=== PATIENT | male | born 1935 | race Caucasian/White ===

== ENCOUNTER 2020-04-19 03:19 | Emergency (ER) | payer OTHER ==
[2020-04-19 04:11] LABS: Absolute Lymphocytes (CBC) 0.7 K/uL (0.7-4.9); Basophils % 1.6 % (0-1.3); Hematocrit 38.4 % (39.6-49.0); MPV 9.2 fL (7.6-11.3); RBC Red Blood Cell Count 4.13 M/uL (4.33-5.43)
[2020-04-19] MEDS ORDERED: DIPHENOX/ATROP SULF 1 TAB PO ONE (04:25)
[2020-04-19] MEDS ORDERED: NA CHLORIDE 0.9% 500 ML ONE (04:25)
[2020-04-19 04:28] LABS: Albumin 3.8 g/dL (3.4-5.0); Bilirubin Direct 0.2 mg/dL (0-0.2); Bilirubin Total 0.5 mg/dL (0.2-1.0); Potassium 3.8 mmol/L (3.5-5.1); Protein, Total 7.7 g/dL (6.4-8.2)
[2020-04-19] MEDS ORDERED: MAGNE/ALUM HYDROXD 30 ML UCUP ONE (04:33)
[2020-04-19] MEDS ORDERED: LIDOCAINE VISCOUS 2% SOLN 15 ML UDC ONE (04:33)
[2020-04-19 05:28] LABS: Blood Morphology Comment NOT SEEN (NOT SEEN); Platelet Estimate ADEQ
--- NOTE | 2020-04-19 05:42 | ER ---
Nurse's Notes [facility] Name: Nehemias Lanier Age: 84 yrs Sex: Male : 1935 Arrival Date: 04/19/2020 Time: 03:22 Bed 20 Private MD: Diagnosis: Other viral enteritis Presentation: 04/19 03:34 Chief complaint: Patient states: abdominal pain and diarrhea together with nausea that wh started yesterday morning. Pt describes burning pain on abdomen. Pt denies fever or vomiting. Coronavirus screen: Proceed with normal triage. Patient denies a cough. Patient denies shortness of breath or difficulty breathing. Patient denies measured and/or subjective temperature greater than 100.4F prior to today's visit. Patient denies travel on a cruise ship or to a country the [facility] currently lists as an affected area. Patient denies contact with known and/or suspected case of COVID-19. Ebola Screen: Patient negative for fever greater than or equal to 101.5 degrees Fahrenheit, and additional compatible Ebola Virus Disease symptoms Patient denies exposure to infectious person. Initial Sepsis Screen: Does the patient meet any 2 criteria? No. Patient's initial sepsis screen is negative. Does the patient have a suspected source of infection? Yes: Acute abdominal pain. Risk Assessment: Do you want to hurt yourself or someone else? Patient reports no desire to harm self or others. Onset of symptoms was April 18, 2020. 03:34 Method Of Arrival: Ambulatory 03:34 Acuity: VIDHYA 3 Historical: - Allergies: 03:40 No Known Allergies; - Home Meds: 03:40 Vitamin D Oral 5000 unit daily [Active]; clopidogrel 75 mg oral tab 1 tab once daily [Active]; valsartan-hydrochlorothiazide 160-12.5 mg oral tab 1 tab once daily [Active]; simvastatin 40 mg oral tab 1 tab nightly [Active]; aspirin 81 mg Oral chew 1 tab nightly [Active]; - PMHx: 03:40 Hypertension; High Cholesterol; TIA; Anxiety; - PSHx: 03:40 Appendectomy; - Immunization history:: Adult Immunizations up to date. - Social history:: Smoking status: Patient/guardian denies using. Screenin:42 Abuse screen: Denies threats or abuse. Denies injuries from another. Nutritional screening: No deficits noted. Tuberculosis screening: No symptoms or risk factors identified. Fall Risk None identified. Assessment: 03:40 General: Appears in no apparent distress. Behavior is calm, cooperative, appropriate wh for age. Pain: Complains of pain in abdomen Pain does not radiate. Pain currently is 8 out of 10 on a pain scale. Quality of pain is described as burning, Pain began 1 day ago. Is intermittent. Neuro: Level of Consciousness is awake, alert, obeys commands, Oriented to person, place, time, situation, Appropriate for age. Cardiovascular: Heart tones S1 S2. Respiratory: Airway is patent Respiratory effort is even, unlabored, Respiratory pattern is regular, symmetrical, Breath sounds are clear bilaterally. GI: Abdomen is flat, non-distended, Bowel sounds present X 4 quads. Abd is soft and non tender X 4 quads. Reports lower abdominal pain, upper abdominal pain, diarrhea, nausea. : No signs and/or symptoms were reported regarding the genitourinary system. EENT: No signs and/or symptoms were reported regarding the EENT system. Derm: Skin is intact, is healthy with good turgor, Skin is pink, warm \T\ dry. normal. Musculoskeletal: Circulation, motion, and sensation intact. 04:45 Reassessment: Patient appears in no apparent distress at this time. No changes from previously documented assessment. Patient and/or family updated on plan of care and expected duration. Pain level reassessed. Patient is alert, oriented x 3, equal unlabored respirations, skin warm/dry/pink. 05:50 Reassessment: Patient appears in no apparent distress at this time. No changes from previously documented assessment. Patient and/or family updated on plan of care and expected duration. Pain level reassessed. Patient is alert, oriented x 3, equal unlabored respirations, skin warm/dry/pink. Patient states feeling better. Patient states symptoms have improved. Vital Signs: 03:34 BP 149 / 73; Pulse 52; Resp 18; Temp 98.5; Pulse Ox 96% ; Weight 73.94 kg; Height 5 ft. 9 in. (175.26 cm); Pain 8/10; 04:30 BP 140 / 72; Pulse 75; Resp 18; Pulse Ox 98% on R/A; 05:30 BP 141 / 72; Pulse 65; Resp 18; Pulse Ox 98% on R/A; 03:34 Body Mass Index 24.07 (73.94 kg, 175.26 cm) ED Course: 03:22 Patient arrived in ED. cl3 03:31 Gabrielle Saul is Primary Nurse. 03:37 Triage completed. 03:41 Woody Figueredo MD is Attending Physician. tw4 03:42 Arm band placed on right wrist. 03:42 Patient has correct armband on for positive identification. Bed in low position. Call light in reach. Side rails up X 1. Pulse ox on. NIBP on. 03:50 Inserted saline lock: 20 gauge in right antecubital area, using aseptic technique. Blood collected. 05:52 No provider procedures requiring assistance completed. IV discontinued, intact, bleeding controlled, No redness/swelling at site. Administered Medications: 04:23 Drug: NS 0.9% 500 ml Route: IV; Rate: bolus; Site: right antecubital; 05:51 Follow up: Response: No adverse reaction; IV Status: Completed infusion 04:24 Drug: LoMOTIL 2 tabs Route: PO; 05:52 Follow up: Response: No adverse reaction 04:29 Drug: GI Cocktail without - (Maalox Suspension 30 ml, Lidocaine Liquid 2 % 15 wh ml) Route: PO; 05:51 Follow up: Response: No adverse reaction; Pain is decreased Outcome: 05:41 Discharge ordered by . tw4 05:52 Discharged to home ambulatory, with family. 05:52 Condition: stable 05:52 Discharge instructions given to patient, family, Instructed on discharge instructions, follow up and referral plans. medication usage, POC Demonstrated understanding of instructions, follow-up care, medications, POC Prescriptions given X 3. 05:52 Patient left the ED. Signatures: Gabrielle Saul Woody Figueredo MD MD tw4 Solitario Myers cl3
--- NOTE | 2020-04-19 05:42 | EDPHYS ---
Physician Documentation [facility] Name: Nehemias Lanier Age: 84 yrs Sex: Male : 1935 Arrival Date: 04/19/2020 Time: 03:22 Bed 20 Private MD: ED Physician Woody Figueredo HPI: 04/19 04:42 This 84 yrs old Male presents to ER via Ambulatory with complaints of tw4 Abdominal Pain, Diarrhea. 04:42 The patient presents to the emergency department with diarrhea, abdominal pain. Onset: tw4 The symptoms/episode began/occurred yesterday. Possible causes: bad food exposure, salad. The symptoms are aggravated by nothing. The symptoms are alleviated by nothing. Associated signs and symptoms: The patient has no apparent associated signs or symptoms. Severity of symptoms: At their worst the symptoms were moderate in the emergency department the symptoms. The patient has not experienced similar symptoms in the past. Historical: - Allergies: 03:40 No Known Allergies; - Home Meds: 03:40 Vitamin D Oral 5000 unit daily [Active]; clopidogrel 75 mg oral tab 1 tab once daily [Active]; valsartan-hydrochlorothiazide 160-12.5 mg oral tab 1 tab once daily [Active]; simvastatin 40 mg oral tab 1 tab nightly [Active]; aspirin 81 mg Oral chew 1 tab nightly [Active]; - PMHx: 03:40 Hypertension; High Cholesterol; TIA; Anxiety; wh - PSHx: 03:40 Appendectomy; - Immunization history:: Adult Immunizations up to date. - Social history:: Smoking status: Patient/guardian denies using. ROS: 04:42 Constitutional: Negative for fever, chills, and weight loss, Eyes: Negative for injury, tw4 pain, redness, and discharge, Cardiovascular: Negative for chest pain, palpitations, and edema, Respiratory: Negative for shortness of breath, cough, wheezing, and pleuritic chest pain, Back: Negative for injury and pain, MS/Extremity: Negative for injury and deformity, Skin: Negative for injury, rash, and discoloration. 04:42 Abdomen/GI: Positive for nausea, diarrhea, abdominal cramps, abdominal distension, Negative for abdominal pain, nausea and vomiting, nausea, vomiting, and diarrhea, anorexia, dysphagia, hematemesis, black/tarry stool, rectal pain, rectal bleeding, bowel incontinence. Exam: 04:42 Constitutional: This is a well developed, well nourished patient who is awake, alert, tw4 and in no acute distress. Head/Face: Normocephalic, atraumatic. Chest/axilla: Normal chest wall appearance and motion. Nontender with no deformity. No lesions are appreciated. Cardiovascular: Regular rate and rhythm with a normal S1 and S2. No gallops, murmurs, or rubs. Normal PMI, no JVD. No pulse deficits. Respiratory: Lungs have equal breath sounds bilaterally, clear to auscultation and percussion. No rales, rhonchi or wheezes noted. No increased work of breathing, no retractions or nasal flaring. Back: No spinal tenderness. No costovertebral tenderness. Full range of motion. MS/ Extremity: Pulses equal, no cyanosis. Neurovascular intact. Full, normal range of motion. Neuro: Awake and alert, GCS 15, oriented to person, place, time, and situation. Cranial nerves II-XII grossly intact. Motor strength 5/5 in all extremities. Sensory grossly intact. Cerebellar exam normal. Normal gait. 04:42 Abdomen/GI: Inspection: distension, that is mild, Bowel sounds: diminished, Palpation: mild abdominal tenderness, in all quadrants. Vital Signs: 03:34 BP 149 / 73; Pulse 52; Resp 18; Temp 98.5; Pulse Ox 96% ; Weight 73.94 kg; Height 5 ft. wh 9 in. (175.26 cm); Pain 8/10; 04:30 BP 140 / 72; Pulse 75; Resp 18; Pulse Ox 98% on R/A; wh 05:30 BP 141 / 72; Pulse 65; Resp 18; Pulse Ox 98% on R/A; wh 03:34 Body Mass Index 24.07 (73.94 kg, 175.26 cm) MDM: 03:42 Patient medically screened. tw4 06:56 Differential diagnosis: Nonspecific abd pain, gastritis. Data reviewed: vital signs, tw4 nurses notes. Data interpreted: Pulse oximetry: Interpretation: normal. Counseling: I had a detailed discussion with the patient and/or guardian regarding: the historical points, exam findings, and any diagnostic results supporting the discharge/admit diagnosis. Medication response: lomotil. Response to treatment: the patient's symptoms have markedly improved after treatment, and as a result, I will discharge patient. Special discussion: I discussed with the patient/guardian in detail that at this point there is no indication for admission to the hospital. It is understood, however, that if the symptoms persist or worsen the patient needs to return immediately for re-evaluation. 04/19 03:43 Order name: Basic Metabolic Panel; Complete Time: 05:23 tw4 04/19 05:23 Interpretation: Normal except: GLUC 124; CRE 1.40; GFR 49; BUN 24. tw4 04/19 03:43 Order name: CBC with Diff tw4 04/19 05:24 Interpretation: Normal except: BASO% 1.6; LYM% 9.0; KELLY% 74.0; MN% 15.3; RBC 4.13; HGB tw4 13.1; HCT 38.4. 04/19 03:43 Order name: Hepatic Function; Complete Time: 05:23 tw4 04/19 05:23 Interpretation: Normal except: GLOB 3.9; A/G 1.0; AST 40. tw4 04/19 03:43 Order name: Lipase; Complete Time: 05:23 tw4 04/19 05:23 Interpretation: Normal except: LIP 653. tw4 04/19 04:15 Order name: Manual Differential EDMS 04/19 03:43 Order name: IV Saline Lock; Complete Time: 03:58 tw4 04/19 03:43 Order name: Labs collected and sent; Complete Time: 03:58 tw4 Administered Medications: 04:23 Drug: NS 0.9% 500 ml Route: IV; Rate: bolus; Site: right antecubital; 05:51 Follow up: Response: No adverse reaction; IV Status: Completed infusion wh 04:24 Drug: LoMOTIL 2 tabs Route: PO; 05:52 Follow up: Response: No adverse reaction wh 04:29 Drug: GI Cocktail without - (Maalox Suspension 30 ml, Lidocaine Liquid 2 % 15 wh ml) Route: PO; 05:51 Follow up: Response: No adverse reaction; Pain is decreased wh Disposition: 04/19/20 05:41 Discharged to Home. Impression: Other viral enteritis. - Condition is Stable. - Discharge Instructions: Food Choices to Help Relieve Diarrhea, Adult, Viral Gastroenteritis, Adult. - Prescriptions for Bentyl 20 mg Oral Tablet - take 1 tablet by ORAL route every 6 hours As needed; 20 tablet. Zofran 4 mg Oral Tablet - take 1 tablet by ORAL route every 12 hours As needed; 6 tablet. Lomotil 2.5- 0.025 mg Oral Tablet - take 2 tablet by ORAL route once daily As needed; 20 tablet. - Medication Reconciliation Form, Thank You Letter, Antibiotic Education, Prescription Opioid Use form. - Follow up: Private Physician; When: Upon discharge from the Emergency Department; Reason: Recheck today's complaints, Continuance of care, Re-evaluation by your physician. - Problem is new. - Symptoms have improved. Signatures: Dispatcher [employer] EDMS Gabrielle Saul Terrence, MD MD tw4 Corrections: (The following items were deleted from the chart) 05:52 05:41 04/19/2020 05:41 Discharged to Home. Impression: Other viral enteritis. Condition wh is Stable. Forms are Medication Reconciliation Form, Thank You Letter, Antibiotic Education, Prescription Opioid Use. Follow up: Private Physician; When: Upon discharge from the Emergency Department; Reason: Recheck today's complaints, Continuance of care, Re-evaluation by your physician. Problem is new. Symptoms have improved. tw4
[2020-04-19 06:00] VITALS: TEMP 98.5
[2020-04-19 06:01] VITALS: O2SAT 98
[2020-04-19 06:02] VITALS: BP 141/72
== END 2020-04-19 05:52 | disposition home or self-care (01) ==
LOC: ER 03:19
DX: A08.39 Other viral enteritis (principal); I10 Essential (primary) hypertension; E78.00 Pure hypercholesterolemia, unspecified; F41.9 Anxiety disorder, unspecified; Z79.82 Long term (current) use of aspirin
CPT/HCPCS: 85025; 80048; 36415; 80076; 83690; 96360; 99284; J7040

== ENCOUNTER 2022-09-10 08:19 | Emergency (ER) | payer OTHER ==
--- NOTE | 2022-09-10 08:57 | ER ---
Nurse's Notes [facility] Name: Nehemias Lanier Age: 87 yrs Sex: Male : 1935 Arrival Date: 09/10/2022 Time: 08:22 Bed 2 Private MD: Diagnosis: Epistaxis Presentation: 09/10 08:33 Chief complaint: Patient states: nose bleed this morning after blowing nose. Ebola mb8 Screen: Patient negative for fever greater than or equal to 101.5 degrees Fahrenheit, and additional compatible Ebola Virus Disease symptoms Patient denies exposure to infectious person. Patient denies travel to an Ebola-affected area in the 21 days before illness onset. Initial Sepsis Screen: Does the patient meet any 2 criteria? No. Patient's initial sepsis screen is negative. Does the patient have a suspected source of infection? No. Patient's initial sepsis screen is negative. Risk Assessment: Do you want to hurt yourself or someone else? Patient reports no desire to harm self or others. Onset of symptoms was September 10, 2022. 08:33 Method Of Arrival: Ambulatory mb8 08:33 Acuity: VIDHYA 4 mb8 09:08 Coronavirus screen: Vaccine status: Patient reports receiving the 2nd dose of the covid mb8 vaccine. Triage Assessment: 08:35 General: Appears uncomfortable, Behavior is calm, cooperative, appropriate for age. mb8 Pain: Denies pain. Historical: - Allergies: 08:37 No Known Allergies; mb8 - Home Meds: 08:34 valsartan-hydrochlorothiazide 160-12.5 mg Oral tab 1 tab once daily [Active]; mb8 simvastatin 40 mg Oral tab 1 tab nightly [Active]; clopidogrel 75 mg Oral tab 1 tab once daily [Active]; Vitamin D Oral 5000 unit daily [Active]; aspirin 81 mg Oral chew 1 tab nightly [Active]; - PMHx: 08:34 Anxiety; High Cholesterol; Hypertension; TIA; mb8 - Social history:: Smoking status: . Screenin:36 Abuse screen: Denies threats or abuse. Denies injuries from another. Nutritional mb8 screening: No deficits noted. Tuberculosis screening: No symptoms or risk factors identified. Fall Risk None identified. Assessment: 08:36 EENT: Nares with bleeding noted on left Reports nasal discharge that is bloody. mb8 08:55 General: nosebleed clamp is off, no active bleeding at this time. . mb8 Vital Signs: 08:30 BP 184 / 91; ss 08:33 BP 182 / 85; Pulse 70; Resp 20; Temp 97.9; Pulse Ox 100% on R/A; Pain 0/10; mb8 08:50 BP 176 / 80; Pulse 63; Resp 16; Pulse Ox 98% on R/A; Pain 9/10; mb8 ED Course: 08:22 Patient arrived in ED. rg4 08:24 Rey Salmon DO is Attending Physician. ms3 08:33 Puma Brown, RN is Primary Nurse. mb8 08:34 Triage completed. mb8 08:35 Arm band placed on. mb8 08:36 Patient has correct armband on for positive identification. Placed in gown. Bed in low mb8 position. Call light in reach. Side rails up X2. Client placed on continuous cardiac and pulse oximetry monitoring. NIBP monitoring applied. 08:36 Assist provider with nosebleed control. mb8 08:55 Amy Bess MD is Referral Physician. ms3 09:07 Patient did not have IV access during this emergency room visit. mb8 Administered Medications: No medications were administered Medication: 08:36 VIS not applicable for this client. mb8 Outcome: 08:56 Discharge ordered by . ms3 09:07 Discharged to home ambulatory. mb8 09:07 Condition: stable 09:07 Discharge instructions given to patient, Instructed on discharge instructions, follow up and referral plans. Demonstrated understanding of instructions, follow-up care. 09:08 Patient left the ED. mb8 Signatures: Kate May, RN Samaria Rivera rg4 Rey Salmon DO DO ms3 Puma Brown, RN RN mb8
--- NOTE | 2022-09-10 08:57 | EDPHYS ---
Physician Documentation [facility] Name: Nehemias Lanier Age: 87 yrs Sex: Male : 1935 Arrival Date: 09/10/2022 Time: 08:22 Bed 2 Private MD: ED Physician Rey Salmon HPI: 09/10 08:56 This 87 yrs old Male presents to ER via Ambulatory with complaints of Nose Bleed. ms3 08:56 The patient presents with a nose bleed, that is apparently anterior, from the left ms3 nare, occurred from an unknown cause, that is continuous small amount causative factors include: unknown, and the bleeding is not resolved and continues in ER. Onset: The symptoms/episode began/occurred 1 hour(s) ago. Modifying factors: The symptoms are alleviated by nothing. the symptoms are aggravated by nothing. Associated signs and symptoms: The patient has no apparent associated signs or symptoms. Severity of symptoms: At their worst the symptoms were mild in the emergency department the symptoms are unchanged. Historical: - Allergies: 08:37 No Known Allergies; mb8 - Home Meds: 08:34 valsartan-hydrochlorothiazide 160-12.5 mg Oral tab 1 tab once daily [Active]; mb8 simvastatin 40 mg Oral tab 1 tab nightly [Active]; clopidogrel 75 mg Oral tab 1 tab once daily [Active]; Vitamin D Oral 5000 unit daily [Active]; aspirin 81 mg Oral chew 1 tab nightly [Active]; - PMHx: 08:34 Anxiety; High Cholesterol; Hypertension; TIA; mb8 - Social history:: Smoking status: . ROS: 08:56 Constitutional: Negative for fever, and chills. Neck: Negative for injury, pain, and ms3 swelling, Cardiovascular: Negative for chest pain, and palpitations. Skin: Negative for injury, rash, and discoloration. 08:56 ENT: Positive for nose bleed. 08:56 All other systems are negative. Exam: 08:56 Constitutional: This is a well developed, well nourished patient who is awake, alert, ms3 and in no acute distress. Head/Face: Normocephalic, atraumatic. Neck: Trachea midline, no cervical lymphadenopathy. Supple, full range of motion without nuchal rigidity, or vertebral point tenderness. No Meningismus. Chest/axilla: Normal chest wall appearance and motion. Nontender with no deformity. Cardiovascular: Regular rate and rhythm with a normal S1 and S2. No gallops, murmurs, or rubs. Normal PMI, no JVD. No pulse deficits. Respiratory: Lungs have equal breath sounds bilaterally, clear to auscultation and percussion. No rales, rhonchi or wheezes noted. No increased work of breathing, no retractions or nasal flaring. Abdomen/GI: Soft, non-tender, with normal bowel sounds. No distension or tympany. No guarding or rebound. No evidence of tenderness throughout. Skin: Warm, dry with normal turgor. Normal color with no rashes, no lesions, and no evidence of cellulitis. 08:56 ENT: Nose: bleeding, is seen from the left nare, and is minimal, no septal hematoma is appreciated. Vital Signs: 08:30 BP 184 / 91; ss 08:33 BP 182 / 85; Pulse 70; Resp 20; Temp 97.9; Pulse Ox 100% on R/A; Pain 0/10; mb8 08:50 BP 176 / 80; Pulse 63; Resp 16; Pulse Ox 98% on R/A; Pain 9/10; mb8 Procedures: 09:01 Epistaxis treatment: A small amount of bleeding noted from left nare. Treated using ms3 nasal clamp, Bleeding stopped. MDM: 08:32 Patient medically screened. ms3 08:56 Data reviewed: vital signs, nurses notes, and as a result, I will discharge patient. ms3 Counseling: I had a detailed discussion with the patient and/or guardian regarding: the historical points, exam findings, and any diagnostic results supporting the discharge/admit diagnosis, the need for outpatient follow up, to return to the emergency department if symptoms worsen or persist or if there are any questions or concerns that arise at home. ED course: Patient's epistaxis is hemostatic at this time after applying pressure to the anterior nose. Patient follow-up with Dr. Bess in 2 to 3 days. Patient understands and agrees with plan. All questions were answered. Return precautions discussed include worsening symptoms, or any other concerns. Administered Medications: No medications were administered Disposition Summary: 09/10/22 08:56 Discharge Ordered Location: Home ms3 Problem: new ms3 Symptoms: are unchanged ms3 Condition: Stable ms3 Diagnosis - Epistaxis ms3 Followup: ms3 - With: Amy Bess MD - When: 2 - 3 days - Reason: Recheck today's complaints Discharge Instructions: - Discharge Summary Sheet ms3 - Nosebleed, Adult ms3 Forms: - Medication Reconciliation Form ms3 - Thank You Letter ms3 - Antibiotic Education ms3 - Prescription Opioid Use ms3 Signatures: Rey Salmon, DO ms3 Puma Brown RN RN mb8
[2022-09-10 09:14] VITALS: TEMP 97.9
[2022-09-10 09:15] VITALS: BP 176/80; O2SAT 98
== END 2022-09-10 09:08 | disposition home or self-care (01) ==
LOC: ER 08:19
DX: R04.0 Epistaxis (principal); I10 Essential (primary) hypertension; E78.00 Pure hypercholesterolemia, unspecified; Z79.82 Long term (current) use of aspirin
CPT/HCPCS: 30901; 99283

== ENCOUNTER 2023-04-29 22:25 | Inpatient (IN) | payer OTHER ==
[2023-04-29] MEDS ORDERED: ONDANSETRON 4 MG/2 ML VIAL ONE (23:02)
[2023-04-29] MEDS ORDERED: NA CHLORIDE 0.9% 1,000 ML ONE (23:02)
[2023-04-29 23:07] LABS: Absolute Lymphocytes (CBC) 0.8 K/uL (0.7-4.9); Hematocrit 37.8 % (39.6-49.0); Lymphocytes % 5.6 % (15.3-44.8); MCV 93.6 fL (80-100); RBC Red Blood Cell Count 4.04 M/uL (4.33-5.43)
[2023-04-29 23:17] LABS: Albumin 3.5 g/dL (3.4-5.0); Bilirubin Direct 0.2 mg/dL (0-0.2); Bilirubin Indirect, Calculated 0.4 mg/dL (0.2-0.8); Bilirubin Total 0.6 mg/dL (0.2-1.0); Magnesium 2.2 mg/dL (1.6-2.4); Potassium 3.8 mEq/L (3.5-5.1); Protein, Total 7.8 g/dL (6.4-8.2); Troponin High Sensitivity 7.4 pg/mL (<58.9)
--- NOTE | 2023-04-30 01:06 | EDPHYS ---
Physician Documentation [facility] Name: Nehemias Lanier Age: 87 yrs Sex: Male : 1935 Arrival Date: 04/29/2023 Time: 22:25 Bed 8 Private MD: Sarbjit Damico T ED Physician Rey Salmon HPI: 04/29 23:57 This 87 yrs old Male presents to ER via Ambulatory with complaints of Nausea/Vomiting, ms3 Abdominal Pain, Dizziness. 23:57 87-year-old male with past medical history of anxiety, hyperlipidemia, hypertension, ms3 TIA presents with his son for nausea, vomiting, dizziness that began this morning. Patient states the nausea and vomiting became worse after eating pizza for dinner. Patient states discomfort is an 8/10 located in his upper abdomen. Patient denies fevers, chills, diarrhea. Patient denies alleviating or inciting factors. Historical: - Allergies: 23:06 No Known Allergies; jb4 - PMHx: 23:06 Anxiety; High Cholesterol; Hypertension; TIA; jb4 - Immunization history:: Adult Immunizations up to date, Pneumococcal vaccine is up to date, Flu vaccine is up to date. - Social history:: Smoking status: Patient denies any tobacco usage or history of. ROS: 23:57 Constitutional: Negative for fever, and chills. Neck: Negative for injury, pain, and ms3 swelling, Cardiovascular: Negative for chest pain, and palpitations. Respiratory: Negative for shortness of breath, cough, wheezing, and pleuritic chest pain. 23:57 MS/Extremity: Negative for injury and deformity, Skin: Negative for injury, rash, and discoloration. 23:57 Abdomen/GI: Positive for abdominal pain, nausea and vomiting. 23:57 Neuro: Positive for Lightheadedness. 23:57 All other systems are negative. Exam: 23:22 ECG was reviewed by the Attending Physician. ms3 23:57 Constitutional: This is a well developed, well nourished patient who is awake, alert, ms3 and in no acute distress. Head/Face: Normocephalic, atraumatic. Neck: Trachea midline, no cervical lymphadenopathy. Supple, full range of motion without nuchal rigidity, or vertebral point tenderness. No Meningismus. Chest/axilla: Normal chest wall appearance and motion. Nontender with no deformity. Cardiovascular: Regular rate and rhythm with a normal S1 and S2. No gallops, murmurs, or rubs. Normal PMI, no JVD. No pulse deficits. Respiratory: Lungs have equal breath sounds bilaterally, clear to auscultation and percussion. No rales, rhonchi or wheezes noted. No increased work of breathing, no retractions or nasal flaring. Skin: Warm, dry with normal turgor. Normal color with no rashes, no lesions, and no evidence of cellulitis. MS/ Extremity: Pulses equal, no cyanosis. Neurovascular intact. Full, normal range of motion. 23:57 Abdomen/GI: Inspection: abdomen appears normal, Bowel sounds: normal, Palpation: moderate abdominal tenderness, in the epigastric area, right upper quadrant and left upper quadrant. Vital Signs: 22:35 BP 164 / 67; Pulse 87; Resp 18; Temp 97.6; Pulse Ox 99% on R/A; Weight 74.39 kg (R); jb4 Height 5 ft. 9 in. (R); 23:49 BP 157 / 70; Pulse 75; Resp 16; Pulse Ox 98% ; rv 04/30 00:56 BP 166 / 76; Pulse 76; Resp 17; Pulse Ox 96% on R/A; rv 01:53 BP 154 / 77; Pulse 81; Resp 16; Pulse Ox 98% on R/A; jb4 04/29 22:35 Body Mass Index 24.22 (74.39 kg, 175.26 cm) jb4 MDM: 04/29 22:45 Patient medically screened. nh3 23:57 Differential diagnosis: Nonspecific abd pain, gastritis, cholecystitis, pancreatitis. nh3 04/30 01:17 Data reviewed: vital signs, nurses notes, and as a result, I will admit patient. nh3 Consideration of Admission/Observation Patient was admitted/placed on observation. Management of patient was discussed with the following: Hospitalist: Discussed case with Jose Angel Dupont, nurse practitioner, and he accepts patient on behalf of Dr. Banks. 01:18 I considered the following discharge prescriptions or medication management in the [facility] emergency department Medications were administered in the Emergency Department. See MAR. Independent interpretation of the following test(s) in the Emergency Department gambling monitor: rate is 86 beats/min, Rhythm is normal sinus rhythm, regular, with no ectopy, Interpretation: normal rate, normal rhythm. Historians other than the Patient: Daughter/Son: Son. Care significantly affected by the following chronic conditions: Hypertension. Counseling: I had a detailed discussion with the patient and/or guardian regarding: the historical points, exam findings, and any diagnostic results supporting the discharge/admit diagnosis, lab results, radiology results, the need for further work-up and treatment in the hospital. ED course: Discussed labs and CT findings concerning for small bowel obstruction with patient and his son. They understand and agree with admission. All questions were answered. Patient improved since arrival to the emergency department. Patient is without emesis at this time.. 04/29 22:43 Order name: Basic Metabolic Panel; Complete Time: 01:05 ms04/29 22:43 Order name: CBC with Diff; Complete Time: 23:32 ms3 04/29 22:43 Order name: LFT's; Complete Time: 01:05 ms3 04/29 22:43 Order name: Magnesium; Complete Time: 01:05 04/29 22:43 Order name: Troponin HS; Complete Time: 01:05 ms04/29 23:53 Order name: Lactate w/ 2H reflex if indic.; Complete Time: 01:36 ms04/30 00:05 Order name: Lipase; Complete Time: 01:05 EDMS 04/29 22:43 Order name: XRAY Chest (1 view) 04/29 22:43 Order name: CT Head Brain wo Cont 04/29 22:43 Order name: CT Abd/Pelvis - IV Contrast Only 04/29 22:43 Order name: EKG; Complete Time: 22:44 04/29 22:43 Order name: Cardiac monitoring; Complete Time: 23:05 ms3 04/29 22:43 Order name: EKG - Nurse/Tech; Complete Time: 23:05 04/29 22:43 Order name: IV Saline Lock; Complete Time: 23:05 ms04/29 22:43 Order name: Labs collected and sent; Complete Time: 23:05 ms3 04/29 22:43 Order name: O2 Per Protocol; Complete Time: 23:05 ms3 04/29 22:43 Order name: O2 Sat Monitoring; Complete Time: 23:05 04/30 01:09 Order name: NPO; Complete Time: 01:16 la1 EC/25 23:22 Rate is 76 beats/min. Rhythm is regular. QRS [place] is Normal. [place] interval is normal. QRS ms3 interval is normal. Clinical impression: Normal ECG. Interpreted by me. Reviewed by me. Administered Medications: 23:05 Drug: Ondansetron IVP 4 mg Route: IVP; Site: right antecubital; rv 04/30 01:30 Follow up: Response: No adverse reaction rv 04/29 23:05 Drug: NS 0.9% IV 500 ml Route: IV; Rate: 1000 ml; Site: right antecubital; rv 04/30 01:30 Follow up: IV Status: Completed infusion; IV Intake: 1000ml rv 01:30 Drug: Piperacillin-Tazobactam IVPB 3.375 grams Route: IVPB; Infused Over: 60 mins; rv Site: right antecubital; Disposition Summary: 04/30/23 01:05 Hospitalization Ordered Hospitalization Status: Inpatient Admission ms3 Provider: Isra Banks ms3 Condition: Stable ms3 Problem: new ms3 Symptoms: are unchanged ms3 Bed/Room Type: Standard ms3 Location: Intensive Care Unit(04/30/23 01:35) cg Room Assignment: 7-(04/30/23 01:35) cg Diagnosis - Bowel obstruction ms3 - Nausea with vomiting, unspecified ms3 - Acute Kidney Injury ms3 - Anemia, unspecified ms3 - Essential (primary) hypertension ms3 Forms: - Medication Reconciliation Form ms3 - SBAR form ms3 Signatures: Dispatcher [employer] EDLA Jose Angel Dupont FNP-Kris ABREUP-Cla1 Gogo Castle, RN RN cg Hussein Das, RN RN jb4 Lane Arrington, RN RN rv Rey Salmon DO DO ms3 Corrections: (The following items were deleted from the chart) 00:05 04/29 23:59 LIPASE+C.LAB.BRZ ordered. [facility] 04/30 01:35 01:05 Telemetry/MedSurg (Inpatient) ms3 cg 01:35 01:05 ms3 cg
--- NOTE | 2023-04-30 01:06 | ER ---
Nurse's Notes [facility] Name: Nehemias Lanier Age: 87 yrs Sex: Male : 1935 Arrival Date: 04/29/2023 Time: 22:25 Bed 8 Private MD: Sarbjit Damico T Diagnosis: Bowel obstruction;Nausea with vomiting, unspecified;Acute Kidney Injury;Anemia, unspecified;Essential (primary) hypertension Presentation: 04/29 22:35 Chief complaint: Chief complaint: Patient states: Tonight I started feeling nauseous jb4 and started vomiting and am having upper abdominal pain and feel dizzy. 22:35 Coronavirus screen: At this time, the client does not indicate any symptoms associated jb4 with coronavirus-19. Ebola Screen: No symptoms or risks identified at this time. Initial Sepsis Screen: Does the patient meet any 2 criteria? No. Patient's initial sepsis screen is negative. Does the patient have a suspected source of infection? No. Patient's initial sepsis screen is negative. Risk Assessment: Do you want to hurt yourself or someone else? Patient reports no desire to harm self or others. Onset of symptoms was April 29, 2023. Transition of care: patient was not received from another setting of care. 22:35 Method Of Arrival: Ambulatory jb4 22:35 Acuity: VIDHYA 3 jb4 Triage Assessment: 23:08 General: Appears uncomfortable, Behavior is calm, cooperative. Pain: Complains of pain rv in abdomen. GI: Reports upper abdominal pain, nausea, vomiting. Historical: - Allergies: 23:06 No Known Allergies; jb4 - PMHx: 23:06 Anxiety; High Cholesterol; Hypertension; TIA; jb4 - Immunization history:: Adult Immunizations up to date, Pneumococcal vaccine is up to date, Flu vaccine is up to date. - Social history:: Smoking status: Patient denies any tobacco usage or history of. Screenin:06 [facility] ED Fall Risk Assessment (Adult) History of falling in the last 3 months, rv including since admission No falls in past 3 months (0 pts) Confusion or Disorientation No (0 pts) Intoxicated or Sedated No (0 pts) Impaired Gait No (0 pts) Mobility Assist Device Used No (0 pt) Altered Elimination No (0 pt) Score/Fall Risk Level 0 - 2 = Low Risk Oriented to surroundings, Maintained a safe environment, Educated pt \T\ family on fall prevention, incl call for assistance when getting out of bed, Assessed \T\ reinforced patient's understanding of fall precautions, Provided non-skid footwear, Hourly rounding (assess needs \T\ fall precautionary measures) done, Used ambulatory aids as needed (educated on \T\ assisted with), Used gait belt as appropriate. Abuse screen: Denies threats or abuse. Denies injuries from another. Nutritional screening: No deficits noted. Tuberculosis screening: No symptoms or risk factors identified. Assessment: 23:15 General: Appears in no apparent distress. comfortable, Behavior is calm, cooperative, jb4 appropriate for age. Pain: Complains of pain in right upper quadrant and left upper quadrant Pain does not radiate. Pain currently is 8 out of 10 on a pain scale. Neuro: Level of Consciousness is awake, alert, obeys commands, Oriented to person, place, time, situation. Cardiovascular: Patient's skin is warm and dry. Respiratory: Airway is patent Respiratory effort is even, unlabored, Respiratory pattern is regular, symmetrical. GI: Abdomen is flat, non-distended, Reports upper abdominal pain, nausea, vomiting. : No signs and/or symptoms were reported regarding the genitourinary system. EENT: No signs and/or symptoms were reported regarding the EENT system. Derm: Skin is intact, Skin is pink, warm \T\ dry. Musculoskeletal: Circulation, motion, and sensation intact. Range of motion: intact in all extremities. 04/30 00:15 Reassessment: Patient appears in no apparent distress at this time. Patient and/or jb4 family updated on plan of care and expected duration. Pain level reassessed. Patient is alert, oriented x 3, equal unlabored respirations, skin warm/dry/pink. 01:53 Reassessment: Patient appears in no apparent distress at this time. Patient and/or jb4 family updated on plan of care and expected duration. Pain level reassessed. Patient is alert, oriented x 3, equal unlabored respirations, skin warm/dry/pink. Vital Signs: 04/29 22:35 BP 164 / 67; Pulse 87; Resp 18; Temp 97.6; Pulse Ox 99% on R/A; Weight 74.39 kg (R); jb4 Height 5 ft. 9 in. (R); 23:49 BP 157 / 70; Pulse 75; Resp 16; Pulse Ox 98% ; rv 04/30 00:56 BP 166 / 76; Pulse 76; Resp 17; Pulse Ox 96% on R/A; rv 01:53 BP 154 / 77; Pulse 81; Resp 16; Pulse Ox 98% on R/A; jb4 04/29 22:35 Body Mass Index 24.22 (74.39 kg, 175.26 cm) jb4 ED Course: 04/29 22:30 Patient arrived in ED. es 22:30 Sarbjit Damico MD is Private Physician. es 22:31 Rey Salmon DO is Attending Physician. ms3 22:35 Lane Arrington, GEN is Primary Nurse. rv 22:59 XRAY Chest (1 view) In Process Unspecified. EDMS 23:00 Inserted saline lock: 20 gauge in right antecubital area, using aseptic technique. rv Blood collected. 23:06 Triage completed. jb4 23:06 Patient has correct armband on for positive identification. Placed in gown. Bed in low rv position. Call light in reach. Side rails up X 1. Client placed on continuous cardiac and pulse oximetry monitoring. NIBP monitoring applied. gambling monitor on. 23:06 Arm band placed on right wrist. jb4 23:08 No provider procedures requiring assistance completed. rv 23:49 CT Head Brain wo Cont In Process Unspecified. EDMS 23:49 CT Abd/Pelvis - IV Contrast Only In Process Unspecified. EDMS 04/30 01:05 Isra Banks MD is Hospitalizing Provider. ms3 01:53 Patient admitted, IV remains in place. jb4 Administered Medications: 04/29 23:05 Drug: Ondansetron IVP 4 mg Route: IVP; Site: right antecubital; rv 04/30 01:30 Follow up: Response: No adverse reaction rv 04/29 23:05 Drug: NS 0.9% IV 500 ml Route: IV; Rate: 1000 ml; Site: right antecubital; rv 04/30 01:30 Follow up: IV Status: Completed infusion; IV Intake: 1000ml rv 01:30 Drug: Piperacillin-Tazobactam IVPB 3.375 grams Route: IVPB; Infused Over: 60 mins; rv Site: right antecubital; Medication: 04/29 23:08 VIS not applicable for this client. rv Intake: 04/30 01:30 IV: 1000ml; Total: 1000ml. rv Outcome: 01:05 Decision to Hospitalize by Provider. ms3 01:53 Admitted to ICU accompanied by nurse, via wheelchair, room 7, with chart. jb4 01:53 Condition: stable 01:53 Discharge instructions given to patient, family, Instructed on the need for admit, Demonstrated understanding of instructions. 02:05 Patient left the ED. sparkle Signatures: Dispatcher [employer] Daniela Parker James RN RN jbLane Ochoa RN RN rv Rey Salmon DO DO ms3 Corrections: (The following items were deleted from the chart) 04/29 23:06 23:04 Chief complaint: sparkle villagran
[2023-04-30] MEDS ORDERED: NA CHLORIDE 0.9% 100 ML ONE (01:29)
[2023-04-30] MEDS ORDERED: PIPERACIL/TAZO 3.375 GM VIAL IV ONE (01:29)
--- NOTE | 2023-04-30 01:31 | P.HP ---
Certification for Inpatient Patient admitted to: Inpatient With expected LOS: >2 Midnights <Jose Angel Dupont - Last Filed: 04/30/23 01:33> Patient History Date of Service: 04/30/23 Primary Care Provider: Dr. Damico Reason for admission: SBO History of Present Illness: 87-year-old male with history of hypertension, hyperlipidemia, TIA presents to the emergency department with chief complaint of nausea, vomiting, abdominal pain. He reports that the last 9 days he was on a trip and had some dietary changes, he felt nauseous throughout the day today began having abdominal pain this evening followed by vomiting. He threw up approximately 4 times, last bowel movement was on 04/28/2023 with small amounts with formed stool. No bowel movement today, reports he is still having flatulence. He was evaluated in the emergency department his labs are significant for white blood cell count 14.5 hemoglobin 12.7 Haile crit 37.8 creatinine 1.49 GFR [address] abdomen pelvis with IV contrast was performed which revealed findings suspicious for developing small bowel obstruction to the level of the distal ileum. No perforation or abscess. Marked diverticulosis left colon with no associate inflammatory change. Fatty liver. Enlarged prostate gland with suspected neurogenic bladder. 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 In light of the patient's age no further follow-up is suggested. Patient be admitted for small bowel obstruction. - Past Medical/Surgical History Diabetic: No -: HTN -: HIGH CHOLESTEROL -: TIA -: Right arm surgery -: Appendectomy Psychosocial/ Personal History: Patient is at home alone - Family History Family History: Reviewed- Non-Contributory - Social History Smoking Status: Never smoker Alcohol use: No CD- Drugs: No Caffeine use: Yes Place of Residence: Home <Jose Angel Dupont - Last Filed: 04/30/23 01:33> Date of Service: 04/30/23 <Isra Banks - Last Filed: 04/30/23 12:50> Allergies No Known Drug Allergies Allergy (Verified 05/31/17 16:02) Unknown Home Medications: Clopidogrel Bisulfate [Plavix*] 75 mg PO DAILY 12/04/13 Simvastatin [Zocor*] 40 mg PO BEDTIME 12/04/13 Valsartan/Hydrochlorothiazide [Diovan Hct 160-12.5 mg Tab] 1 tab PO BEDTIME 12/04/13 ALPRAZolam [Xanax*] 0.25 mg PO TID PRN #30 tab 12/05/13 Aspirin [Aspir-Low] 81 mg PO DAILY 05/31/17 Sulfamethoxazole/Trimethoprim [Bactrim Ds Tablet] 1 each PO BID 05/31/17 Vit A/Vit C/Vit E/Zinc/Copper [Preservision Areds Softgel] 1 each PO DAILY 05/31/17 Review of Systems 10-point ROS is otherwise unremarkable Gastrointestinal: Nausea, Vomiting, Abdominal Pain <Jose Angel Dupont - Last Filed: 04/30/23 01:33> Physical Examination - Physical Exam General: Alert, In no apparent distress, Oriented x3 HEENT: Atraumatic, PERRLA, Mucous membr. moist/pink, EOMI, Sclerae nonicteric Neck: Supple, 2+ carotid pulse no bruit, No LAD, Without JVD or thyroid abnormality Respiratory: Clear to auscultation bilaterally, Normal air movement Cardiovascular: No edema, Regular rate/rhythm, Normal S1 S2 Gastrointestinal: Normal bowel sounds, No tenderness Musculoskeletal: No tenderness Integumentary: No rashes Neurological: Normal speech, Normal strength at 5/5 x4 extr, Normal tone, Normal affect - Studies Laboratory Data (last 24 hrs) 04/29/23 23:59: Lipase Cancelled 04/29/23 22:45: WBC 14.50 H, Hgb 12.7 L, Hct 37.8 L, Plt Count 274 04/29/23 22:45: Sodium 136, Potassium 3.8, BUN 31 H, Creatinine 1.49 H, Glucose 141 H, Magnesium 2.2, Total Bilirubin 0.6, AST 25, ALT 25, Alkaline Phosphatase 74, Lipase 30 <Jose Angel Dupont - Last Filed: 04/30/23 01:33> - Studies Laboratory Data (last 24 hrs) 04/29/23 23:59: Lipase Cancelled 04/29/23 22:45: WBC 14.50 H, Hgb 12.7 L, Hct 37.8 L, Plt Count 274 04/29/23 22:45: Sodium 136, Potassium 3.8, BUN 31 H, Creatinine 1.49 H, Glucose 141 H, Magnesium 2.2, Total Bilirubin 0.6, AST 25, ALT 25, Alkaline Phosphatase 74, Lipase 30 <Isra Banks - Last Filed: 04/30/23 12:50> Assessment and Plan - Plan Assessment: Small bowel obstruction Hypertension Hyperlipidemia History of TIA Plan: Small bowel obstruction N.p.o., IVF, as needed pain medications and antiemetics. General surgery consult. Pain is improved at this time abdomen is soft nondistended no vomiting currently. Hold off on NGT. Repeat KUB morning of 05/31/2020. Hypertension Hyperlipidemia History of TIA Hold oral medications at this time given presence of bowel obstruction. Restart when appropriate. DVT PPX: SCD Code status: Full Discharge Plan: Home Plan to discharge in: 72 Hours - Advance Directives Does patient have a Living Will: Yes Does patient have a Durable POA for Healthcare: Yes - Code Status/Comfort Care Code Status Assessed: Yes (Full) Critical Care: No Time Spent Managing Pts Care (In Minutes): 55 <Jose Angel Dupont - Last Filed: 04/30/23 01:33> - Plan Patient seen and examined on rounds this morning Passing flatus this morning, had some lower abdominal cramping which is resolved Denies any nausea/vomiting today Nontender, nondistended on exam Continue n.p.o., IV fluids Low threshold for NG tube General surgery consulted <Isra Banks - Last Filed: 04/30/23 12:50>
[2023-04-30] MEDS: D5 0.9 NS 1,000 ML IV SCH ×3 (02:56→22:04)
[2023-04-30 05:20] LABS: Absolute Lymphocytes (CBC) 0.8 K/uL (0.7-4.9); Hematocrit 34.5 % (39.6-49.0); Lymphocytes % 7.9 % (15.3-44.8); MCV 93.6 fL (80-100); MPV 7.8 fL (7.6-11.3); RBC Red Blood Cell Count 3.69 M/uL (4.33-5.43)
[2023-04-30 05:44] LABS: Potassium 4.1 mEq/L (3.5-5.1)
[2023-04-30] MEDS: PIPER TAZO 3.375 GM in NA CHLORIDE 0.9% 100 ML IV SCH ×2 (08:08→16:48)
[2023-04-30] MEDS: ONDANSETRON 4 MG/2 ML VIAL IV PRN ×3 (08:08→22:04)
--- NOTE | 2023-04-30 10:52 | RAD REPORT ---
EXAM DESCRIPTION: CT - Abdomen Pelvis W Contrast - 04/30/2023 6:39 am CLINICAL HISTORY: 87 years Male Abd pain;Nausea / vomiting COMPARISON: None TECHNIQUE: Images were obtained and axial, sagittal, and coronal planes. Intravenous contrast was ad ministered. This exam was performed according to our departmental dose-optimization program which includes use of Automated Exposure Control, adjustment of the mA and/or kV according to patient size and/or use of i terative reconstruction technique. FINDINGS: Decreased attenuation involving the liver consistent with fatty change. Unremarkable splee n, pancreas, and adrenal glands bilaterally. Cholelithiasis. Mildly distended gallbladder. Small hiat al hernia. No obstructing renal or ureteral calculi bilaterally. No hydronephrosis bilaterally. Enlarged prostat e gland. [place] appearing bladder possibly neurogenic bladder. Appendix within normal limits. Marked diverticulosis descending and sigmoid colon with no associated inflammatory change. Moderately dilated air and fluid-filled small bowel loops to the level of distal ileum. Zone of transition not well identified. The findings are suspicious for developing small rowena l obstruction. No perforation or abscess. Chronic changes lower lungs bilaterally. 3 mm noncalcified nodule lateral left lower lobe. This findi ng is thought to be benign. No further follow-up needed. Enlarged heart. Coronary artery calcificatio ns. No acute osseous abnormality. Moderate degenerative changes lumbar spine. Small eccentric possibly saccular aneurysm mid abdominal aorta. The finding measures 2 cm in greatest transverse dimension and 2 cm in greatest anteroposterior dimension. No abnormality portal vein. No adenopathy or abnormal fluid collections seen. IMPRESSION: Findings suspicious for developing small bowel obstruction to the level of distal ileum. No perforation or abscess. Marked diverticulosis left colon with no associated inflammatory change. Fatty change involving the liver. Enlarged prostate gland with suspected neurogenic bladder. 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 In light of the patient's age, no further follow-up mcdaniel ggested. Vascular consultation could be performed if further evaluation needed. Electronically signed by: Kristel Ziegler MD 04/30/2023 12:26 AM CDT Due to temporary technical issues with the PACS/Fluency reporting system, reports are being signed by the in house radiologist without review as a courtesy to ensure prompt reporting. The interpreting r adiologist is fully responsible for the content of the report.
--- NOTE | 2023-04-30 10:55 | CON ---
Date of Consultation: 04/30/2023 Reason For Consultation: Small bowel obstruction. History Of Present Illness: The patient is an 87-year-old gentleman, who presented to the emergency room with nausea, vomiting, and abdominal pain. He has had these nauseous symptoms for the last 9 da ys when he had been on a trip and had some food that he normally does not eat. His last bowel moveme nt was 2 days ago. He is still passing gas today. He is nauseous today. He has not thrown up today . No blood in his stool. No dysuria or hematuria. No sore throat, runny nose, cough, headaches, or dizziness. No chest pain. No fever or chills. Review of Systems: Otherwise unremarkable. Past Medical History: Significant for hypertension, high cholesterol, TIA. Past Surgical History: Right arm surgery, appendectomy. Allergies: NO ALLERGIES. Social History: The patient does not smoke or drink alcohol. Family History: Noncontributory. Physical Examination: Vital Signs: Stable. He is afebrile. General: He is awake, alert, and oriented x3. Head and Neck: Cranial nerves 2 through 12 grossly within normal limits. No neck masses. No JVD. Throat clear. Neck supple. Chest: Clear. Heart: S1 and S2. Abdomen: Soft, slightly distended. Hypoactive bowel sounds. Minimal tenderness. No rebound, rigid ity, or guarding. Extremity: Adequately perfused. Nontender. Neuro: Nonfocal. Laboratory Data: White count was 14.5 on admission, this morning is 84.3. Electrolytes reviewed. C T of the abdomen and pelvis reviewed and shows possible early small bowel obstruction at the level of the ileum. Other findings are detailed in the report. Assessment: Partial small bowel obstruction. Recommendations: N.p.o., IV fluids, empiric antibiotics. If the patient vomits, he will need an NG tube and I would recommend abdominal x-ray to follow up the partial small bowel obstruction. Serial abdominal exam. No need for any surgical intervention at this time. We will follow this patient trav rosario in the hospital. /MODL Voice ID: [id number] Report ID: [id number]
--- NOTE | 2023-04-30 10:57 | RAD REPORT ---
EXAM DESCRIPTION: CT - Head Brain Wo Cont - 04/30/2023 6:39 am CLINICAL HISTORY: 87 years Male Lightheaded COMPARISON: None TECHNIQUE: Images were obtained in axial, sagittal, and coronal planes. This exam was performed according to our departmental dose-optimization program which includes use of Automated Exposure Control, adjustment of the mA and/or kV according to patient size and/or use of i terative reconstruction technique. FINDINGS: Ventricular system is moderately enlarged. Moderate prominence of the cortical sulci. No abnormal areas of increased attenuation seen. No extra-axial fluid collections noted. No evidence for skull fracture. Symmetric aeration mastoid air cells bilaterally. Unremarkable parana mehul sinuses. IMPRESSION: No acute intracranial abnormality. No evidence for hemorrhage, mass lesion, or large acu te infarction. Age-appropriate changes. Electronically signed by: Kristel Ziegler MD 04/30/2023 12:13 AM CDT Due to temporary technical issues with the PACS/Fluency reporting system, reports are being signed by the in house radiologist without review as a courtesy to ensure prompt reporting. The interpreting r adiologist is fully responsible for the content of the report.
--- NOTE | 2023-04-30 11:48 | RAD REPORT ---
EXAM DESCRIPTION: RAD - Chest Single View - 04/29/2023 10:57 pm CLINICAL HISTORY: 87 years Male, dizziness, lightheadedness TECHNIQUE: 1 view (Single frontal view of the chest) COMPARISON: None. FINDINGS: LINES AND TUBES: None. CARDIOVASCULAR STRUCTURES: Normal heart size. No pulmonary venous congestion. LUNGS: No confluent areas of acute consolidation. PLEURA: No layering pleural effusions. No pneumothorax. BONES: No acute osseous abnormality of the thorax. IMPRESSION: 1. No acute cardiopulmonary disease. Electronically signed by: Puma Barbour MD 04/29/2023 11:27 PM CDT Due to temporary technical issues with the PACS/Fluency reporting system, reports are being signed by the in house radiologist without review as a courtesy to ensure prompt reporting. The interpreting r adiologist is fully responsible for the content of the report.
--- NOTE | 2023-04-30 12:37 | RAD REPORT ---
EXAM DESCRIPTION: RAD - Abdomen 1 View (KUB) - 04/30/2023 12:23 pm CLINICAL HISTORY: Abdomen pain FINDINGS: Comparison is made to April 29, 2023 cat scan Since the small bowel is mostly fluid filled with little air it is difficult to accurately assess the caliber. There are several mildly dilated air-filled loops of jejunum within the left upper quadrant which are without obvious change. The air within the colon remains diminished.
[2023-04-30] MEDS: MORPHINE 2 MG/ML SYR IV PRN ×2 (15:53→22:04)
--- NOTE | 2023-04-30 17:10 | EKG ---
Test Date: 2023-04-29 Test Time: 22:52:45 Cupola Melter: CONTRERAS MEASUREMENT RESULTS: Intervals: Rate: 76 MI: 208 QRSD: 96 QT: 396 QTc: 445 Falconer: P: 31 MI: 208 QRS: 5 T: 60 INTERPRETIVE STATEMENTS: Sinus rhythm with fusion complexes Otherwise normal ECG Compared to ECG 05/31/2017 16:38:29 Fusion complex(es) now present Electronically Signed On 04-30-23 17:09:39 CDT by Miguel Angel Murguia
[2023-05-01] MEDS: PIPER TAZO 3.375 GM in NA CHLORIDE 0.9% 100 ML IV SCH ×3 (00:46→16:42)
[2023-05-01 04:58] LABS: Absolute Lymphocytes (CBC) 0.5 K/uL (0.7-4.9); Hematocrit 31.3 % (39.6-49.0); Lymphocytes % 3.9 % (15.3-44.8); MCV 94.3 fL (80-100); MPV 8.1 fL (7.6-11.3); RBC Red Blood Cell Count 3.32 M/uL (4.33-5.43)
[2023-05-01 05:01] LABS: Potassium 3.6 mEq/L (3.5-5.1)
--- NOTE | 2023-05-01 07:25 | RAD REPORT ---
EXAM DESCRIPTION: RAD - Abdomen 1 View (KUB) - 05/01/2023 6:14 am CLINICAL HISTORY: Eval bowel gas/sbo Pain COMPARISON: Abdomen 1 View (KUB) dated 04/30/2023 FINDINGS: The bowel gas pattern is non-obstructive. No evidence of free air or pneumatosis. No suspi cious calcifications. Mild degenerative levoscoliosis of the lumbar spine. Moderate colonic stool retention. IMPRESSION: Nonobstructive bowel-gas pattern.
[2023-05-01] MEDS ORDERED: KCL 20 MEQ/100 mL IVPB 20 MEQ/100 ML BAG IV SCH (08:00)
[2023-05-01] MEDS: D5 0.9 NS 1,000 ML IV SCH ×2 (08:35→20:21)
--- NOTE | 2023-05-01 13:43 | PN ---
Date of Progress Note: 05/01/2023 Subjective: The patient is awake, alert, passing gas. He has not had a bowel movement. Feels much better. Objective: Vital Signs: Stable. He is afebrile. Abdomen: Soft, nondistended, nontender. Positive bowel sounds. Laboratory Data: Shows white count of 13.4. KUB reviewed which shows a nonobstructive bowel gas pat tern. Assessment: Partial small bowel obstruction, improving. Recommendations: We will begin the patient on clear liquids and advanced as tolerated. If GI soft i s tolerated, by the morning the patient can be discharged home tomorrow. Plan of care discussed with Dr. Guerrero. /MODL Voice ID: [id number] Report ID: [id number]
--- NOTE | 2023-05-01 13:51 | P.PN ---
Subjective Date of Service: 05/01/23 Primary Care Provider: Dr. Damico Chief Complaint: SBO Patient denies any complaint today. No BM but states that she has been passing flatus. He denies any abdominal pain and states he feels hungry. Physical Examination - Vital Signs Temperature: 97.1 F Blood Pressure: 114/83 Pulse: 62 Respirations: 16 Pulse Ox (%): 93 - Physical Exam General: Alert, In no apparent distress, Oriented x3 HEENT: Mucous membr. moist/pink Neck: Supple, JVD not distended Respiratory: Clear to auscultation bilaterally, Normal air movement Cardiovascular: No edema, Regular rate/rhythm, Normal S1 S2, No murmurs Gastrointestinal: Normal bowel sounds, Soft and benign, Non-distended, No tenderness Musculoskeletal: No swelling, No tenderness Integumentary: No rashes, No cyanosis Neurological: Normal strength at 5/5 x4 extr Lymphatics: No axilla or inguinal lymphadenopathy Assessment And Plan - Plan Small bowel obstruction Patient has been passing flatus. Repeat KUB today shows nonobstructive bowel pattern. Patient is currently asymptomatic. Case discussed with general surgery Dr. Sawyer. Patient started on clear liquid diet to advance as tolerated. Serial abdominal examination. Continue antibiotics. Hypertension Hyperlipidemia History of TIA Resume home medications. DVT PPX: SCD Code status: Full
[2023-05-01 15:46] LABS: Phosphorus 2.1 mg/dL (2.5-4.9)
[2023-05-02] MEDS: PIPER TAZO 3.375 GM in NA CHLORIDE 0.9% 100 ML IV SCH ×2 (00:17→08:25)
[2023-05-02] MEDS: D5 0.9 NS 1,000 ML IV SCH ×2 (04:00→06:24)
[2023-05-02 04:53] LABS: Absolute Lymphocytes (CBC) 1.1 K/uL (0.7-4.9); Hematocrit 29.5 % (39.6-49.0); Lymphocytes % 12.8 % (15.3-44.8); MCV 94.5 fL (80-100); MPV 8.2 fL (7.6-11.3); RBC Red Blood Cell Count 3.12 M/uL (4.33-5.43)
[2023-05-02 05:17] LABS: Potassium 3.6 mEq/L (3.5-5.1)
[2023-05-02 06:06] VITALS: BMI 23.6
[2023-05-02] MEDS ORDERED: POTASSIUM CL SA 10 MEQ TAB PO ONE (09:00)
[2023-05-02 09:08] VITALS: O2SAT 97
--- NOTE | 2023-05-02 10:27 | P.DS ---
Admission Date: 04/30/23 Discharge Date: 05/02/23 Primary Care Provider: Dr. Damico Disposition: ROUTINE DISCHARGE Discharge Condition: FAIR Reason for Admission: SBO - Problems (1) Small bowel obstruction Current Visit: Yes Status: Acute Brief History of Present Illness: 87-year-old male with history of hypertension, hyperlipidemia, TIA presented to the emergency department with chief complaint of nausea, vomiting, abdominal pain. He reports that the last 9 days he was on a trip and had some dietary changes, he felt nauseous throughout the day and began having abdominal pain followed by vomiting. He threw up approximately 4 times, last bowel movement was on 04/28/2023 with small amounts with formed stool. No bowel movement today, reports he is still having flatulence. He was evaluated in the emergency department his labs were significant for white blood cell count 14.5 hemoglobin 12.7 Haile crit 37.8 creatinine 1.49 GFR [address] abdomen pelvis with IV contrast was performed which revealed findings suspicious for developing small bowel obstruction to the level of the distal ileum. No perforation or abscess. Marked diverticulosis left colon with no associate inflammatory change. Fatty liver. Enlarged prostate gland with suspected neurogenic bladder. 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 Patient be admitted for small bowel obstruction. Hospital Course: Patient admitted to the medical floor and treated with supportive measures including IV fluid. He was kept n.p.o. and serial abdominal x-rays done. Patient's symptoms improved, no nausea or vomiting and did not require NG tube insertion. KUB demonstrated improvement in bowel gas pattern. Patient passed flatus. He was seen in consultation by general surgery Dr. Sawyer who assisted with management. He was eventually started on a liquid diet and advance to soft consistency which he tolerated. He was treated with empiric IV Zosyn. Patient overall has clinically improved and deemed stable for discharge per surgery. He is prescribed empiric Cipro and Flagyl. Vital Signs/Physical Exam: Temp Pulse Resp BP Pulse Ox 97.3 F 48 L 10 L 139/63 96 05/02/23 04:00 05/02/23 04:00 05/02/23 04:00 05/02/23 04:00 05/02/23 04:00 General: Alert, In no apparent distress, Oriented x3 HEENT: Mucous membr. moist/pink Neck: Supple, JVD not distended Respiratory: Clear to auscultation bilaterally, Normal air movement Cardiovascular: No edema, Regular rate/rhythm, Normal S1 S2 Gastrointestinal: Normal bowel sounds, Soft and benign, Non-distended, No tenderness Musculoskeletal: No swelling Integumentary: No rashes, No cyanosis Neurological: Normal strength at 5/5 x4 extr Laboratory Data at Discharge: WBC 8.40 thou/uL (4.3-10.9) 05/02/23 04:28 Hgb 9.7 g/dL (13.6-17.9) L 05/02/23 04:28 Hct 29.5 % (39.6-49.0) L 05/02/23 04:28 Plt Count 182 thou/uL (152-406) 05/02/23 04:28 Sodium 144 mEq/L (136-145) 05/02/23 04:28 Potassium 3.6 mEq/L (3.5-5.1) 05/02/23 04:28 BUN 24 mg/dL (7-18) H 05/02/23 04:28 Creatinine 1.25 mg/dL (0.70-1.30) 05/02/23 04:28 Glucose 126 mg/dL (74-106) H 05/02/23 04:28 Phosphorus 2.1 mg/dL (2.5-4.9) L 05/01/23 14:44 Magnesium 2.0 mg/dL (1.6-2.4) 05/01/23 14:44 Total Bilirubin 0.6 mg/dL (0.2-1.0) 04/29/23 22:45 AST 25 U/L (15-37) 04/29/23 22:45 ALT 25 U/L (16-61) 04/29/23 22:45 Alkaline Phosphatase 74 U/L (45-117) 04/29/23 22:45 Lipase Cancelled 04/29/23 23:59 Home Medications: Clopidogrel Bisulfate [Plavix*] 75 mg PO DAILY 12/04/13 Simvastatin [Zocor*] 40 mg PO BEDTIME 12/04/13 Valsartan/Hydrochlorothiazide [Diovan Hct 160-12.5 mg Tab] 1 tab PO BEDTIME 12/04/13 ALPRAZolam [Xanax*] 0.25 mg PO TID PRN #30 tab 12/05/13 Aspirin [Aspir-Low] 81 mg PO DAILY 05/31/17 Vit A/Vit C/Vit E/Zinc/Copper [Preservision Areds Softgel] 1 each PO DAILY 05/31/17 Ciprofloxacin HCl [Cipro] 500 mg PO BID #10 tab 05/02/23 metroNIDAZOLE [Flagyl] 500 mg PO Q8H #15 tab 05/02/23 New Medications: Ciprofloxacin HCl [Cipro] 500 mg PO BID #10 tab metroNIDAZOLE [Flagyl] 500 mg PO Q8H #15 tab Diet: Regular (GI soft diet and advance as tolerated) Activity: Ad chuck Followup: Sarbjit Damico MD [Primary Care Provider] - 1-2 Weeks Cornelio Sawyer MD [ACTIVE - CAN ADMIT] - (2 weeks) Time spent managing pt's care (in minutes): 36
[2023-05-02 12:29] VITALS: BP 155/65; TEMP 98.1
== END 2023-05-02 11:45 | disposition home or self-care (01) | DRG 389 ==
LOC: ER 22:25 → ERHOLD 04-30 01:25 → 3RD-ICU 04-30 01:42
PROVIDERS: ADMIT Hospitalist; ATTEND Internal Medicine
DX: K56.600 Partial intestinal obstruction, unspecified as to cause (principal); N17.9 Acute kidney failure, unspecified; I10 Essential (primary) hypertension; E78.00 Pure hypercholesterolemia, unspecified; D64.9 Anemia, unspecified; K76.0 Fatty (change of) liver, not elsewhere classified; Z60.2 Problems related to living alone; Z90.49 Acquired absence of other specified parts of digestive tract; Z79.02 Long term (current) use of antithrombotics/antiplatelets; Z79.82 Long term (current) use of aspirin; Z86.73 Personal history of transient ischemic attack (TIA), and cerebral infarction without residual deficits; Z79.899 Other long term (current) drug therapy
CPT/HCPCS: 36415; 70450; 71045; 74018; 74177; 80048; 80076; 83605; 83690; 83735; 84100; 84484; 85025; 93005; 96361; 96374; 96375; 99285; J2270; J2405; J2543; J3480; J7030; J7042; Q9967

== ENCOUNTER 2025-03-26 17:07 | Emergency (ER) | payer OTHER ==
--- OUTSIDE RECORDS SUMMARY | 2025-03-26 17:10 | XMS REPORT | Continuity of Care Document ---
Author Name Unknown Address [address] [facility] [address] [place] [address] [facility] [place] Address [address] [facility] [place] [address] Care Team Providers Care Pipelines Supervisor Name Role Phone Provider, Unknown Home Health Primary Care Physi be Unavailable BRADEN LUNA Attending Clinician Unavailable MELANI CASIANO Attending Clinician Unavailable Payers Payer Name Policy Type Policy Number Effective Date Expirati on Date Source [employer] MED[employer]ARE PPO [id number] 00:00:00 Problems Condition Name Condition Details Condition Category Status Onset Date Resolution Date Last Treatment Date Treating Clinician Comments Source Dupuytren contractur e Dupuytren contractur e Disease Active 2023-11 00:00: 00 [facility] Social History Social Habit Start Date Stop Date Quantity Comments Source Sexual orientation 2024-07-14 19:33:11 Heterosexual (finding) [facility] Tobacco use and exposure 2024-08-26 00:00:00 2024-08-26 00:00:00 Smokeless tobacco non-user [facility] Alcoholic beverage intake 2024-08-26 00:00:00 2024-08-26 00:00:00 Lifetime non-drinker (finding) [facility] History of Social function 2024-08-26 00:00:00 2024-08-26 00:00:00 [facility] Sex assigned at 1935 00:00:00 1935 00:00:00 M [facility] Smoking Status Start Date Stop Date Source Never smoked tobacco [facility] th Medications Ordered Medication Name Filled Medication Name Start Date Stop Date Current Medication? Ordering Clinician Indication Dosage Frequency Signature (SIG) Comments Components Source ASPIRIN 81 PO 2023-11 09:43: 49 Yes Take by mouth. [facility] Cholecalcif radha (Vitamin D-3) 125 MCG (5000 UT) tablet 2023-11 09:43: 49 Yes Take by mouth. [facility] valsartan-h ydroCHLOROt hiazide (Diovan-HCT ) 160-12.5 MG tablet 08-02 00:00: 00 Yes 1{tbl} QD Take 1 tablet by mouth 1 (one) time each day. [facility] simvastatin (Zocor) 40 MG tablet 08-01 00:00: 00 Yes 1 (one) time each day in the evening. [facility] clopidogrel (Plavix) 75 MG tablet 07-24 00:00: 00 Yes 75mg QD Take 75 mg by mouth 1 (one) time each day. [facility] Lumigan 0.01 % ophthalmic solution 03-12 00:00: 00 Yes 1[drp] Administer 1 drop into both eyes every night. [facility] Vital Signs Vital Name Observation Time Observation Value Comments S мария Body height 2024-08-26 14:39:00 175.3 cm [facility] Body weight 2024-08-26 14:39:00 66.679 kg [facility] BMI 2024-08-26 14:39:00 21.71 kg/m2 [facility] Encounters Start Date/Time End Date/Time Encounter Type Admission Type Attending Clinicians Care Facility Care Department Encounter ID Source 2024-10-10 08:45:00 2024-10-10 10:34:31 Outpatient JEREMY THEODOREAlisa [facility] [id number] [facility] 2024-10-01 11:30:00 2024-10-01 11:30:00 Outpatient JEREMY THEODOREAlisa [facility] [id number] [facility] 2024-09-17 10:00:00 2024-09-17 10:00:00 Outpatient MELANI CASIANO [facility] [id number] [facility] 2024-08-26 00:00:00 2024-08-26 10:42:58 Outpatient [facility] [id number] [facility] 2024-08-26 10:30:00 2024-08-26 10:42:41 Office Visit Melani Casiano [facility] 2 [id number] [facility]
--- NOTE | 2025-03-26 23:47 | ER ---
Nurse's Notes [facility] Name: Nehemias Lanier Age: 89 yrs Sex: Male : 1935 Arrival Date: 03/26/2025 Time: 17:07 Bed [id number] Private MD: Diagnosis: Presentation: 03/26 17:20 Chief complaint: Patient states: Hit R hand on a table at 1400 today. Wouldn't stop ll1 oozing blood. Dressing in place now, bleeding controlled. Coronavirus screen: Client denies travel out of the [place] in the last 14 days. At this time, the client does not indicate any symptoms associated with coronavirus-19. Ebola Screen: Patient denies travel to an Ebola-affected area in the 21 days before illness onset. Complicating Factors: There are no complicating factors for this patient. Initial Sepsis Screen: Does the patient meet any 2 criteria? No. Patient's initial sepsis screen is negative. Does the patient have a suspected source of infection? No. Patient's initial sepsis screen is negative. Risk Assessment: Do you want to hurt yourself or someone else? Patient reports no desire to harm self or others. Onset of symptoms was March 26, 2025. 17:20 Method Of Arrival: Ambulatory ll1 17:20 Acuity: VIDHYA 4 ll1 Triage Assessment: 17:21 General: Appears in no apparent distress. Behavior is calm, cooperative, appropriate ll1 for age. Pain: Complains of pain in right hand Quality of pain is described as aching. Derm: Reports skin tear R hand. Musculoskeletal: Circulation, motion, and sensation intact. Capillary refill < 3 seconds, in right fingers. Injury Description: skin tear. Historical: - Allergies: 17:22 No Known Drug Allergies; ll1 - PMHx: 17:22 Anxiety; High Cholesterol; Hypertension; TIA; ll1 - PSHx: 17:22 None; ll1 - Immunization history:: Last tetanus immunization: unknown. - Social history:: Smoking status: Patient denies any tobacco usage or history of. Vital Signs: 17:20 BP 126 / 80; Pulse 60; Resp 16; Temp 97.6; Pulse Ox 98% ; Weight 66.68 kg; Height 5 ft. ll1 9 in. ; Pain 5/10; 17:20 Body Mass Index 21.71 (66.68 kg, 175.26 cm) ll1 17:20 Pain Scale: Adult ll1 ED Course: 17:11 Patient arrived in ED. mr 17:21 Triage completed. ll1 17:21 Arm band placed on. ll1 17:45 Josy Woodson PA-C [facility]. sb4 17:45 Jose Ta MD is Attending Physician. sb4 Administered Medications: No medications were administered Outcome: 23:46 Patient left the ED. ha1 Signatures: Mercedez Galicia, Reg Reg Jj Myers, RN RN 1 Phyllis Polanco RN RN ha1 Josy Woodson PA-C PA-C sb4
[2025-03-26 23:57] VITALS: BP 126/80; TEMP 97.6; O2SAT 98
== END 2025-03-26 23:46 | disposition left against medical advice (07) ==
LOC: ER 17:07
DX: Z53.21 Procedure and treatment not carried out due to patient leaving prior to being seen by health care provider (principal)
CPT/HCPCS: 99281